=== PATIENT | male | born 1975 | race Caucasian/White ===

== ENCOUNTER 2023-05-20 07:30 | Outpatient (RCR) | payer OTHER, SELFPAY | END 2023-09-17 23:59 | disposition home or self-care (01) | PROVIDERS: Visit Provider Orthopaedic Surgery | DX: M25.859 Other specified joint disorders, unspecified hip (principal); M25.552 Pain in left hip; Z51.89 Encounter for other specified aftercare | CPT/HCPCS: 97110; 97161 ==

== ENCOUNTER 2023-06-20 11:50 | Outpatient (CLI) | payer OTHER, SELFPAY | END 2023-06-20 11:51 | disposition home or self-care (01) | LOC: LKVREF 11:53 | PROVIDERS: Visit Provider Nurse Practitioner Family | DX: Z01.818 Encounter for other preprocedural examination (principal) | CPT/HCPCS: 80053 ==

== ENCOUNTER 2023-07-22 19:44 | Outpatient (CLI) | payer OTHER, SELFPAY ==
--- NOTE | 2023-07-30 11:11 | W.PM.SLEEP ---
Sleep Study Details Details Interpreting Provider: HANNA Date of Sleep Study: 07/22/23 Sleep Study Details: STUDY TYPE:? HOME UNATTENDED ? BMI:? 39.3 ORDERING PROVIDER:Kenyetta HART INDICATION:? CONCERNS ABOUT SLEEP APNEA ? SLEEP SUMMARY:? TOTAL RECORDING TIME 354.9 MINUTES RESPIRATORY SUMMARY:? AHI CMS GUIDELINE 6.4, RULE 1A GUIDELINE 12.7 LOW OXYGEN 77 3.7% OF STUDY OXYGEN LESS THAN 90% SNORING 18.5% PERIODIC LIMB MOVEMENTS OF SLEEP:? NOT RECORDED DURING HOME STUDY CARDIAC:? RANGE 60-110, MEAN 85.4 IMPRESSION:? Mild obstructive sleep apnea. RECOMMENDATION: Treatment options include weight loss, CPAP AutoSet 4-17, dental appliance and/or airway expansion surgery.
== END 2023-07-22 19:45 | disposition home or self-care (01) ==
LOC: SLEEP 19:46
PROVIDERS: Visit Provider Nurse Practitioner Family
DX: G47.33 Obstructive sleep apnea (adult) (pediatric) (principal)
CPT/HCPCS: 95806

== ENCOUNTER 2023-08-15 16:02 | Outpatient (CLI) | payer OTHER, SELFPAY | END 2023-08-15 16:03 | disposition home or self-care (01) | LOC: LKVREF 16:04 | PROVIDERS: PCP Nurse Practitioner Family; Visit Provider Nurse Practitioner Family | DX: Z13.228 Encounter for screening for other metabolic disorders (principal) | CPT/HCPCS: 80048 ==

== ENCOUNTER 2024-05-29 10:14 | Outpatient (CLI) | payer OTHER, SELFPAY | END 2024-05-29 10:15 | disposition home or self-care (01) | PROVIDERS: PCP Nurse Practitioner Family; Visit Provider Nurse Practitioner Family | DX: Z00.00 Encounter for general adult medical examination without abnormal findings (principal); I10 Essential (primary) hypertension; E66.9 Obesity, unspecified; Z12.5 Encounter for screening for malignant neoplasm of prostate; Z13.6 Encounter for screening for cardiovascular disorders | CPT/HCPCS: 80053; 80061; G0103 ==

== ENCOUNTER 2025-03-19 13:32 | Outpatient (CLI) | payer OTHER, SELFPAY ==
--- NOTE | 2025-03-19 13:45 | MR_ITS ---
[address] [address] Phone:?[phone] Fax:?[phone] Referring Physician Information: Pierce Mayen M.D. [id number] [facility] [address] Phone:?[phone] Fax:?[phone] Patient:Jyoti Cline D.O.B:?1975 Sex:?Male Phone:?[phone] [facility] MRN:?[id number] Exam Date:?03/19/2025 EXAM: MRI OF THE LEFT ANKLE WITHOUT CONTRAST CLINICAL INFORMATION: Male, 49 years old, with left ankle pain. INDICATION: Evaluate ankle pain. PRIOR SURGERY: None reported. PLAIN FILMS: None available. COMPARISONS: No prior MRIs available. TECHNICAL INFORMATION: Using a 1.5T MR scanner and a localizing surface coil: sagittals: PD, T2, STIR coronals: PD, T2FS axials: PD, T2FS, PDFS oblique SEDATION: None. CONTRAST: None. FINDINGS: Osseous structures: No stress/occult fracture or other marrow edema/pathology. Os trigonum: No os trigonum or abnormally prominent Stieda's process. 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 There are mild reactive osseous changes along the synchondrosis. Tibiotalar joint: Effusion: Mild subtalar joint effusion. Ganglion cyst: None. Osteochondral surfaces: Approximately 4 x 4 mm osteochondral lesion of the lateral talar dome, with mild/moderate surrounding bone marrow edema (sagittal PD series 6 image 18, coronal PD series 8 image 60, and coronal T2FS series 9 image 16). Loose bodies: No demonstrable loose bodies. Subtalar joint: Effusion: Physiologic. Articular cartilage: No osteochondral abnormality. Tarsal joints: Talonavicular: Unremarkable. Calcaneocuboid: Unremarkable. Naviculocuneiform: Unremarkable. Tarsometatarsal: Unremarkable. Ligaments: Syndesmotic ligaments:?The anterior and posterior inferior tibiofibular syndesmotic ligaments are normal. Lateral ligaments:?Marked attenuation and high-grade tearing of the anterior talofibular and calcaneal fibular ligaments (axial PD series 3 images 13-18). Deltoid ligament:?The visualized components of the superficial and deep deltoid ligament, specifically the tibiospring and posterior tibiotalar ligaments, are intact, but mildly thickened and relatively amorphous in appearance. Calcaneonavicular spring ligament:?The superomedial component of the calcaneonavicular spring ligament is grossly intact. Bifurcate and calcaneocuboid ligaments:?Intact lateral calcaneonavicular and medial calcaneocuboid ligaments. The dorsolateral calcaneocuboid ligament is intact. Tendons: Peroneal:?The peroneal tendons are appropriately situated within the retromalleolar groove and the superior peroneal retinaculum is intact. Mild peroneus brevis tendinopathy, without split/tear. Peroneus longus is unremarkable. Flexor tendons:?The posterior tibialis, flexor digitorum and flexor hallucis longus tendons are intact. No significant tendinopathy and without tenosynovitis, tendon split or tendon disruption. A small type II accessory navicular bone is incidentally noted. Moderate-marked FHL and mild posterior tibialis and FDL tenosynovitis (axial T2FS series 4 images 8-21) Extensor tendons:?The anterior tibialis, extensor digitorum longus, and extensor hallucis longus tendons are intact. No significant tendinopathy and without tenosynovitis, tendon split or tendon disruption. Achilles:?Intact, without tendinopathy or tear. No retrocalcaneal or retro- Achilles bursitis. Sinus tarsi:?The sinus tarsi signal is normal. Plantar aponeurosis: There is no abnormal thickening of, abnormal intrasubstance signal involving, or perifascial edema about the plantar aponeurosis. Specifically, the plantar fascia origin appears normal in signal intensity and morphology. Plantar musculature:?The intrinsic foot musculature is normal in bulk and signal intensity without evidence of denervation atrophy. Neurovascular structures and tarsal tunnel: The posterior tibial neurovascular structures appear unremarkable coursing past the ankle and through the tarsal tunnel. IMPRESSION: 1. Acute sprain and high-grade tearing of the anterior talofibular and calcaneofibular ligaments. 2. Approximately 4 x 4 mm stable osteochondral lesion of the lateral talar dome, with mild-moderate surrounding bone marrow edema and a small joint effusion. 3. Moderate marked FHL tenosynovitis. There is also mild posterior tibialis and FDL tenosynovitis. 4. 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 5. Chronic low-grade sprain of the deltoid ligamentous complex. 6. No fracture or osseous stress reaction. BC Electronically signed on 03/19/2025 10:51:00 PM by Tamir Aj M.D.
== END 2025-03-19 13:33 | disposition home or self-care (01) ==
PROVIDERS: PCP Nurse Practitioner Family; Visit Provider Orthopaedic Surgery Sports Medicine
DX: M25.572 Pain in left ankle and joints of left foot (principal); S93.402D Sprain of unspecified ligament of left ankle, subsequent encounter; M25.472 Effusion, left ankle; M65.872 Other synovitis and tenosynovitis, left ankle and foot; S93.422A Sprain of deltoid ligament of left ankle, initial encounter
CPT/HCPCS: 73721